=== PATIENT | male | born 1940 | race Two or more races ===

== ENCOUNTER 2016-08-28 20:21 | Emergency (ER) | payer MEDICAID, OTHER ==
[~2016-08-28] VITALS: Ht 175.3 cm; Wt 86.2 kg
[2016-08-28] MEDS ORDERED: Tetanus/Diptheria/Pertussis Vaccine 0.5ml Syr IM ONE (21:45)
[2016-08-28 21:59] VITALS: BP 114/58
--- NOTE | 2016-08-28 22:18 | Emergency Room Report ---
History of Present Illness General Chief Complaint: Head, Face, Neck Trauma Source: Patient, EMS Present Illness HPI 76YOM BIBEMS after ETOH intox and fall on right side of head. Patient endorses "a lot of alcohol today." Unknwon if on ASA or AC HPI otherwise limited by intox Allergies: Coded Allergies: No Known Allergies (Unverified , 08/28/16) Patient History Past Medical History: see triage record, old chart reviewed Past Surgical History: unable to obtain Pertinent Family History: unable to obtain Social History: Reports: alcohol use Immunizations: UTD Reviewed Nursing Documentation: PMH: Agreed, PSxH: Agreed Nursing Documentation-PMH Past Medical History Deferred: Pt Cognitively Impaired Review of Systems All Other Systems: limited - ETOH intoxi Physical Exam Vital Signs Date Time Temp Pulse Resp B/P Pulse Ox O2 Delivery O2 Flow Rate FiO2 08/28/16 20:18 98.1 78 18 149/71 97 Room Air Sp02 EP Interpretation: reviewed, normal General Appearance: normal inspection, well appearing, no apparent distress, alert, obese Head: normocephalic, other - Multiple abrasiosn to right side of head near lateral eyebrow Eyes: bilateral eye EOMI, bilateral eye PERRL ENT: normal ENT inspection, hearing grossly normal, normal voice Neck: normal inspection, full range of motion, supple, no bony tend Respiratory: normal inspection, lungs clear, normal breath sounds, no respiratory distress, no retraction, no wheezing Cardiovascular #1: regular rate, rhythm, no edema Gastrointestinal: normal inspection, normal bowel sounds, non tender, soft, no guarding, no hernia Genitourinary: no CVA tenderness Musculoskeletal: normal inspection, back normal, normal range of motion, Sanjana' s Sign negative Neurologic: normal inspection, alert, responsive, qa specialist III-XII nml as tested, motor strength/tone normal, speech normal Psychiatric: normal inspection, judgement/insight normal, mood/affect normal Skin: normal inspection, normal color, no rash Lymphatic: normal inspection Medical Decision Making Diagnostic Impression: Primary Impression: Alcohol intoxication Qualified Codes: F10.920 - Alcohol use, unspecified with intoxication, uncomplicated Additional Impression: Abrasion head ER Course VSS. Afebrile. CT head negative No other signs of trauma No focal neuro deficits Endorsed to Dr Figueredo to followup on sobriety at 1030pm Last Vital Signs Date Time Temp Pulse Resp B/P Pulse Ox O2 Delivery O2 Flow Rate FiO2 08/28/16 21:59 97.6 72 24 114/58 98 Room Air Status: improved Disposition: HOME, SELF-CARE Referrals: [facility],REFERRING (PCP) TAY JAVIER M.D. Aug 28, 2016 22:18
[2016-08-29 00:17] VITALS: BP 117/64
[2016-08-29 02:44] VITALS: BP 112/55
[2016-08-29 04:44] VITALS: BP 119/68
[2016-08-29 05:30] VITALS: BP 119/68
--- NOTE | 2016-08-29 13:31 | Diagnostic Imaging Report ---
Indication: PAIN Technique: spiral acquisitions obtained through the brain. Angled axial and coronal 5 x 5 mm slices were reconstructed. No IV contrast utilized. Radiation dose was minimized using automated exposure control Total dose length product 1354 mGycm. CTDIvol(s) 70 mGy Comparison: none FINDINGS: No acute hemorrhage or edema. No mass effect or midline shift. There is age-related enlargement of the ventricles and extra axial CSF spaces. There is periventricular deep white matter ischemic change. Normal myers-white differentiation. . Visualized sinuses are unremarkable. Intact calvarium. There is soft tissue swelling/contusion in the left parietal scalp region as well as in the right periorbital region. There is evidence of prior bilateral cataract surgery IMPRESSION: Chronic and age-related changes. Negative for acute intracranial bleed or mass effect Evidence of right periorbital and left high parietal soft tissue contusion This agrees with the preliminary interpretation provided overnight by Dr. Fernandez The CT scanner at [facility] is accredited by the [employer] and the scans are performed using protocols designed to limit radiation exposure to as low as reasonably achievable to attain images of sufficient resolution adequate for diagnostic evaluation
== END 2016-08-29 05:30 | disposition home or self-care (01) ==
LOC: EDBD 20:21 → EMR 21:40
DX: F10.920 Alcohol use, unspecified with intoxication, uncomplicated (principal); S00.91XA Abrasion of unspecified part of head, initial encounter; W19.XXXA Unspecified fall, initial encounter; Y93.9 Activity, unspecified; Y92.9 Unspecified place or not applicable; Z23 Encounter for immunization
CPT/HCPCS: 70450; 90471; 90715; 96372; 99284